=== PATIENT | female | born 1995 | race Caucasian/White ===

== ENCOUNTER 2023-11-20 02:01 | Inpatient (IN) | payer SELFPAY ==
[~2023-11-20] VITALS: Ht 154.9 cm; Wt 120.2 kg
[2023-11-20 02:22] VITALS: BP 136/79
[2023-11-20 02:48] LABS: BASO # 0.1 10*3/uL (0.0-0.1); BASO % 0.7 % (0.0-1.0); EOS # 0.3 10*3/uL (0.0-0.4); EOS % 3.8 % (1.0-4.0); LYMPH # 3.6 10*3/uL (1.3-4.4); LYMPH % 43.6 % (27.0-41.0); MEAN CORPUSCULAR HGB 28.8 pg (27.0-31.0); MEAN CORPUSCULAR HGB CONC 33.5 g/dl (33.0-37.0); MEAN PLATELET VOLUME 9.2 fl (9.6-12.3); MONO # 0.6 10*3/uL (0.1-1.0); MONO % 7.3 % (3.0-9.0); NEUT # 3.7 10*3/uL (2.3-7.9); NEUT % 44.4 % (47.0-73.0); PLATELET COUNT AUTOMATED 339 10*3/uL (130-400); RED BLOOD COUNT 4.65 10*6/uL (4.10-5.10); RED CELL DISTRI WIDTH 12.2 % (0-14.5); WHITE BLOOD COUNT 8.3 10*3/uL (4.8-10.8)
[2023-11-20 03:09] LABS: ALKALINE PHOSPHATASE 87 U/L (46-116); BUN 7 mg/dl (9-23); CHLORIDE 104 mmol/L (98-107); LIPASE 177 U/L (12-53); POTASSIUM 4.1 mmol/L (3.4-5.1); SGPT/ALT 19 U/L (5-49)
[2023-11-20] MEDS ORDERED: Lidocaine Hydrochloride 15 ML UDC PO STA (07:40)
[2023-11-20] MEDS ORDERED: MG-AL HYDROXIDE/SIMETICONE 30 ML UDC PO STA (07:40)
[2023-11-20] MEDS ORDERED: Dicyclomine Hydrochloride 20 MG/10 ML OSYR PO STA (07:40)
[2023-11-20] MEDS ORDERED: Ketorolac Tromethamine 15 MG/ML VIAL IV ONE (07:50)
[2023-11-20] MEDS ORDERED: Ondansetron Hydrochloride 4 MG/2 ML VIAL IV ONE (07:50)
[2023-11-20] MEDS ORDERED: Ondansetron Hydrochloride 4 MG/2 ML VIAL IV PRN (08:45)
[2023-11-20] MEDS ORDERED: ACETAMINOPHEN 325 MG TAB PO PRN (08:45)
[2023-11-20] MEDS ORDERED: BISACODYL 5 MG TAB PO PRN (08:45)
[2023-11-20] MEDS ORDERED: SODIUM CHLORIDE 0.9% 1,000 ML IV ONE (08:50)
[2023-11-20] MEDS ORDERED: Enoxaparin Sodium 40 MG/0.4 ML SYR SC SCH (10:00)
[2023-11-20] MEDS ORDERED: Acetaminophen/Hydrocodone 5 MG/325 MG TABLET PO PRN (15:40)
[2023-11-20 20:36] VITALS: BP 114/72
[2023-11-21 06:40] LABS: BASO % 0.5 % (0.0-1.0); EOS # 0.2 10*3/uL (0.0-0.4); EOS % 3.4 % (1.0-4.0); LYMPH # 2.8 10*3/uL (1.3-4.4); LYMPH % 45.7 % (27.0-41.0); MEAN CORPUSCULAR HGB 29.1 pg (27.0-31.0); MEAN CORPUSCULAR HGB CONC 34.2 g/dl (33.0-37.0); MEAN PLATELET VOLUME 9.3 fl (9.6-12.3); MONO # 0.4 10*3/uL (0.1-1.0); MONO % 6.4 % (3.0-9.0); NEUT # 2.7 10*3/uL (2.3-7.9); NEUT % 43.8 % (47.0-73.0); PLATELET COUNT AUTOMATED 287 10*3/uL (130-400); RED BLOOD COUNT 4.47 10*6/uL (4.10-5.10); RED CELL DISTRI WIDTH 12.3 % (0-14.5); WHITE BLOOD COUNT 6.2 10*3/uL (4.8-10.8)
[2023-11-21 06:53] VITALS: BP 101/62
[2023-11-21 07:12] LABS: ALKALINE PHOSPHATASE 76 U/L (46-116); CHLORIDE 105 mmol/L (98-107); CHOLESTEROL 226 mg/dL (<200); LDL CHOLESTEROL 153 mg/dL (9-159); LIPASE 45 U/L (12-53); SGPT/ALT 18 U/L (5-49); TOTAL PROTEIN 6.1 gm/dL (6.0-8.0); TRIGLYCERIDES 166 mg/dl (<150)
[2023-11-21 07:23] LABS: BUN < 5 mg/dl (9-23)
[2023-11-21 07:27] LABS: VITAMIN D, 25-HYDROXY 20.5 ng/mL (30-100)
[2023-11-21 09:05] VITALS: BP 105/51
[2023-11-21] MEDS ORDERED: ATORVASTATIN CALCIUM 40 MG TABLET PO SCH (10:00)
[2023-11-21] MEDS ORDERED: Cholecalciferol 2,000 UNIT TABLET (50 MCG) PO SCH (10:00)
[2023-11-21] MEDS ORDERED: ATORVASTATIN CA40 M1 PO (10:39)
[2023-11-21] MEDS ORDERED: VITAMIN D350 MCG PO (10:39)
[2023-11-21] MEDS ORDERED: HYDROCODONE-AC1 EAC1 PO (10:41)
== END 2023-11-21 12:21 | disposition home or self-care (01) | DRG 439 ==
LOC: ED 02:01 → EDHOLD 07:51
PROVIDERS: Internal Medicine; Registered Nurse; ADMIT Internal Medicine; ATTEND Internal Medicine
DX: K85.90 Acute pancreatitis without necrosis or infection, unspecified (principal); E44.0 Moderate protein-calorie malnutrition; Z68.45 Body mass index [BMI] 70 or greater, adult; R07.89 Other chest pain; E66.9 Obesity, unspecified; E78.01 Familial hypercholesterolemia; E55.9 Vitamin D deficiency, unspecified; E28.2 Polycystic ovarian syndrome; Z79.899 Other long term (current) drug therapy; Z98.891 History of uterine scar from previous surgery; Z90.49 Acquired absence of other specified parts of digestive tract; Z84.89 Family history of other specified conditions; Z88.8 Allergy status to other drugs, medicaments and biological substances; Z91.09 Other allergy status, other than to drugs and biological substances

== ENCOUNTER → 2024-02-28 | Outpatient (CLI) | payer SELFPAY ==
[~2024-02-28] MED LIST: ATORVASTATIN CA40 M1 PO; HYDROCODONE-AC1 EAC1 PO; SINCALIDE 2.4 MCG in SODIUM CHLORIDE 0.9% 50 ML IV STA; VITAMIN D350 MCG PO
== END | disposition home or self-care (01) ==
LOC: NM 02:18
PROVIDERS: ATTEND Surgery
DX: R10.13 Epigastric pain (principal)

== ENCOUNTER 2024-05-16 10:03 | Emergency (ER) | payer SELFPAY ==
[~2024-05-16] VITALS: Ht 154.9 cm; Wt 119.3 kg
[~2024-05-16 10:03] MED LIST changes: -SINCALIDE 2.4 MCG in SODIUM CHLORIDE 0.9% 50 ML IV STA
[2024-05-16] MEDS ORDERED: Ketorolac Tromethamine 60 MG/2 ML VIAL IM ONE (10:10)
[2024-05-16] MEDS ORDERED: Cyclobenzaprine Hydrochlorid 10 MG TAB PO ONE (10:10)
[2024-05-16] MEDS ORDERED: Dexamethasone Sodium Phospha 20 MG/5 ML VIAL IM ONE (10:10)
[2024-05-16] MEDS ORDERED: ACETAMINOPHEN 500 MG TAB PO ONE (11:20)
== END 2024-05-16 11:40 | disposition home or self-care (01) ==
LOC: ED 10:03
DX: O9A.211 Injury, poisoning and certain other consequences of external causes complicating pregnancy, first trimester (principal); S13.9XXA Sprain of joints and ligaments of unspecified parts of neck, initial encounter; R10.2 Pelvic and perineal pain; Z32.01 Encounter for pregnancy test, result positive; Z88.8 Allergy status to other drugs, medicaments and biological substances; Z79.899 Other long term (current) drug therapy; Z98.890 Other specified postprocedural states; Z90.49 Acquired absence of other specified parts of digestive tract; Z3A.01 Less than 8 weeks gestation of pregnancy; X50.1XXA Overexertion from prolonged static or awkward postures, initial encounter; Y93.89 Activity, other specified; Y92.092 Bedroom in other non-institutional residence as the place of occurrence of the external cause; Y99.8 Other external cause status

== ENCOUNTER 2025-01-25 04:17 | Emergency (ER) | payer SELFPAY ==
[~2025-01-25] VITALS: Ht 154.9 cm; Wt 108.9 kg
[2025-01-25 06:04] LABS: BASO # 0.0 10*3/uL (0.0-0.1); BASO % 0.5 % (0.0-1.0); EOS # 0.2 10*3/uL (0.0-0.4); EOS % 4.3 % (1.0-4.0); MEAN CELL VOLUME 85.9 fl (81.0-99.0); MEAN CORPUSCULAR HGB 28.2 pg (27.0-31.0); MEAN PLATELET VOLUME 9.2 fl (9.6-12.3); MONO # 0.4 10*3/uL (0.1-1.0); MONO % 6.7 % (3.0-9.0); NEUT # 3.1 10*3/uL (2.3-7.9); NEUT % 54.4 % (47.0-73.0); NUCLEATED RED BLOOD CELL 0.0 % (0.0-0.0); NUCLEATED RED BLOOD CELL 0.0 10*3/uL (0.0-0.0); PLATELET COUNT AUTOMATED 309 10*3/uL (130-400); RED CELL DISTRI WIDTH 13.2 % (0-14.5)
[2025-01-25] MEDS ORDERED: Lidocaine Hydrochloride 5 ML AMP SC ONE (06:20)
[2025-01-25 06:24] LABS: BUN 9 mg/dl (9-23)
[2025-01-25] MEDS ORDERED: IOHEXOL 300 MG/ML 100 ML VIAL IV ONE (06:25)
[2025-01-25] MEDS ORDERED: IOHEXOL 300 MG/ML 100 ML VIAL ONE (06:53)
[2025-01-25] MEDS ORDERED: ERYTHROMYCIN OPH1 GM OPH (07:57)
[2025-01-25] MEDS ORDERED: CEFDINIR300 MG PO (07:57)
[2025-01-25] MEDS ORDERED: SEPTDS PO (07:57)
[2025-01-25] MEDS ORDERED: PREDNISONE20 M1 PO (07:57)
== END 2025-01-25 09:11 | disposition home or self-care (01) ==
LOC: ED 04:17
PROVIDERS: Emergency Medicine
DX: L03.213 Periorbital cellulitis (principal)